=== PATIENT | male | born 1945 | race Caucasian/White ===

== ENCOUNTER 2025-02-07 08:27 | Inpatient (IN) | payer OTHER, MEDICARE ==
[~2025-02-07] VITALS: Ht 365.8 cm; Wt 87.0 kg
--- NOTE | 2025-02-07 09:19 | RADIOLOGY REPORT ---
CLINICAL INFORMATION: 79 years old, Male; HIP PAIN. TECHNIQUE: 2 views of the pelvis and left hip were obtained, including AP view of the pelvis and microsoft bi architect ss-table lateral view of the left hip. COMPARISON: None FINDINGS: Acute fracture of the left femoral neck with associated foreshortening of the femoral neck on the AP view. No other acute fracture visualized. Moderate joint space narrowing in both hips with associated subchondral sclerosis. Focal calcification in the left gluteal soft tissues measuring up t o 1.4 cm. Moderate soft tissue swelling adjacent to the left hip fracture. IMPRESSION: Acute left femoral neck fracture.
[2025-02-07 09:30] LABS: BASOPHILS # (AUTO) 0.1 X10'3 (0-0.2); EOSINOPHILS # (AUTO) 0.1 X10'3 (0-0.9); EOSINOPHILS % (AUTO) 2.2 % (0-6); HEMOGLOBIN 14.8 g/dl (14.0-17.9); LYMPHOCYTES # (AUTO) 1.3 X10'3 (1.1-4.8); LYMPHOCYTES % (AUTO) 22.1 % (21-51); MEAN CORPUSCULAR HEMOGLOBIN 31.9 PG (27.0-31.0); MEAN CORPUSCULAR HGB CONC 34.5 g/dL (33.0-36.5); MEAN CORPUSCULAR VOLUME 92.7 FL (78-98); MEAN PLATELET VOLUME 7.1 FL (7.4-10.4); MONOCYTES # (AUTO) 0.6 X10'3 (0-0.9); MONOCYTES % (AUTO) 10.3 % (2-12); NEUTROPHILS # (AUTO) 3.8 X10'3 (1.8-7.7); NEUTROPHILS % (AUTO) 64.4 % (42-75); PLATELET COUNT 228 X10'3 (140-440); RED BLOOD COUNT 4.64 X10'6 (4.70-6.10); RED CELL DISTRIBUTION WIDTH 13.5 % (11.5-14.5)
[2025-02-07 09:43] LABS: ALANINE AMINOTRANSFERASE 34 U/L (12-78); ALBUMIN 3.7 G/DL (3.4-5.0); ALBUMIN/GLOBULIN RATIO 1.3 (1.1-1.5); ALKALINE PHOSPHATASE 61 IU/L (46-116); ANION GAP 5 (8-16); ASPARTATE AMINO TRANSFERASE 21 U/L (10-37); BILIRUBIN,TOTAL 0.7 MG/DL (0.1-1.0); BLOOD UREA NITROGEN 15 MG/DL (7-18); BUN/CREATININE RATIO 13.9 (10.0-20.0); CALCIUM 8.6 MG/DL (8.5-10.1); CHLORIDE 105 MMOL/L (99-107); CREATININE 1.08 MG/DL (0.60-1.10); GLUCOSE 216 MG/DL (70-104); POTASSIUM 4.3 MMOL/L (3.5-5.1); SODIUM 139 MMOL/L (135-145); TOTAL CARBON DIOXIDE 28.6 MMOL/L (24-32); TOTAL PROTEIN 6.5 G/DL (6.4-8.2); eCRCL 59 ML/MIN; eGFR 66 ML/MIN
--- NOTE | 2025-02-07 09:55 | Physician Documentation ---
History of Present Illness ~ Chief Complaint: Leg Pain Stated Complaint: FALL Time Seen by MD: 08:36 Primary Medical Doctor: CHRISTOPHER HOOD 79 year old male fell while checking into hotel this morning and sustained injury to L leg, BIB EMS with L hip pain. Denies LOC, head strike, is not on blood thinners, denies chest pain, SOB, fevers. Is on trip with significant other. Tetanus witin 5 years: No Medication Reconciliation Allergies: Coded Allergies: triamcinolone (Unverified Allergy, Unknown, 02/07/25) Review of Systems All Other Systems at this time: Reviewed and Negative Physical Exam Vital Signs: RN Vital Signs have been reviewed: Yes, Temperature: 97.0, Source: Temporal, Heart Rate: 68, Respiratory Rate: 18, BP: 206/106, Pulse Oximetry: 98, Weight: 87.000 Oxygen Flow Rate: 0 Physical Exam HEENT: PERRL, moist oral mucosa, EOMI Pulmonary: No respiratory distress MSK: no deformity, LLE shortened and externally rotated, tender to palpation over greater trochanter Skin: w/d/i, no rash Neuro: alert, nonfocal Psych: normal affect Progress Results/Orders Results/Orders Orders - KEATON BECK MD Hip Unilateral 2 Views (02/07/25 08:55) Urinalysis, Cult If Indicated (02/07/25 09:09) * (A) [facility]- Protocol * Q12H@07,19 (02/07/25 09:09) Page Hospitalist (02/07/25 ) Completed Orders - KEATON BECK MD Hip Unilateral 2 Views (02/07/25 08:55) Cbc/Diff (02/07/25 09:09) CMP (02/07/25 09:09) Lidocaine 2% Jelly 11ml Syr (Glydo-Lidoc (02/07/25 09:10) Vital Signs 02/07/25 08:33 Temp 97.0 Pulse 68 Resp 18 B/P (MAP) 206/106 Pulse Ox 98 O2 Flow Rate 0 Laboratory Tests Test 02/07/25 09:17 White Blood Count 6.0 Red Blood Count 4.64 L Hemoglobin 14.8 Hematocrit 43.0 Mean Corpuscular Volume 92.7 Mean Corpuscular Hemoglobin 31.9 H Mean Corpuscular Hemoglobin Concent 34.5 Red Cell Distribution Width 13.5 Platelet Count 228 Mean Platelet Volume 7.1 L Neutrophils (%) (Auto) 64.4 Lymphocytes (%) (Auto) 22.1 Monocytes (%) (Auto) 10.3 Eosinophils (%) (Auto) 2.2 Basophils (%) (Auto) 1.0 Neutrophils # (Auto) 3.8 Lymphocytes # (Auto) 1.3 Monocytes # (Auto) 0.6 Eosinophils # (Auto) 0.1 Basophils # (Auto) 0.1 CBC Comment Sodium Level 139 Potassium Level 4.3 Chloride Level 105 Carbon Dioxide Level 28.6 Anion Gap 5 L Blood Urea Nitrogen 15 Creatinine 1.08 Estimated GFR/1.73 m2 66 BUN/Creatinine Ratio 13.9 Glucose Level 216 H Calcium Level 8.6 Total Bilirubin 0.7 Aspartate Amino Transf (AST/SGOT) 21 Alanine Aminotransferase (ALT/SGPT) 34 Alkaline Phosphatase 61 Total Protein 6.5 Albumin 3.7 Globulin 2.8 Albumin/Globulin Ratio 1.3 Chemistry Comments EKG/XRAY/CT/US/VASC/MRI Bone/Soft Tissue X-Ray (Ext.) : Interpreted By: self Views: 1 VIEW Indication: pain Location: pelvis Additional Comment my interpretation: L femoral neck fracture Medical Decision Making Findings 79 year old male with likely L hip fracture, confirmed on xray. Lab studies interpreted by me were largely unremarkable. Counseled patient, will place hightower and refer to our orthopedic surgeon continuous process tanner rotary drum today. Departure Disposition: ADMITTED INPATIENT Admitted to Inpatient Unit: to hospitalist Admission Level of Care: Med/Surg Impression: Primary Impression: Fracture of femur Condition: Stable Referrals: NO PRIMARY CARE PROVIDER (PCP) Education Educated: Patient, Family Educated regarding: diagnosis, treatment, prognosis, need for follow up Signature Scribe Signature: . Attestation: . KEATON BECK MD Feb 07, 2025 09:55
[2025-02-07] MEDS: fentaNYL/PF 50MCG/1 ML 2ML syringe IV ONE (10:20)
[2025-02-07] MEDS ORDERED: HYDROcodone/acetaminophen 5mg/325mg tablet PO PRN (10:30)
[2025-02-07] MEDS ORDERED: bisacodyl 10mg suppository rectal RC PRN (10:30)
[2025-02-07] MEDS ORDERED: ondansetron/PF 4mg/2ml inj IV PRN (10:30)
[2025-02-07] MEDS ORDERED: magnesium hydroxide 30ml (MOM) UD suspension PO PRN (10:30)
[2025-02-07] MEDS ORDERED: acetaminophen 325mg tablet PO PRN ×2 (10:30)
[2025-02-07] MEDS ORDERED: morphine 2 MG/ML inj. syringe IV PRN ×2 (10:30)
[2025-02-07] MEDS ORDERED: ondansetron 4mg rapidly disintigrating tab PO PRN (10:30)
[2025-02-07] MEDS ORDERED: diphenhydrAMINE 50 mg/ml inj IV PRN (10:30)
[2025-02-07] MEDS ORDERED: mag hydrox/Alum hydrox/simeth 30ml oral suspension PO PRN (10:30)
[2025-02-07] MEDS ORDERED: acetaminophen 650mg rectal suppository RC PRN (10:30)
[2025-02-07] MEDS ORDERED: diphenhydrAMINE 25mg capsule PO PRN (10:30)
[2025-02-07] MEDS ORDERED: dextrose 50%-water 50ml dispensing syringe IV PRN ×2 (10:40)
[2025-02-07] MEDS ORDERED: glucagon, human recombinant 1mg kit SUBCUT PRN (10:40)
[2025-02-07] MEDS ORDERED: DEXTROSE 15 GM of carb/4 tabs (each vial/BOTTLE has 4 tablets) PO PRN ×2 (10:40)
--- NOTE | 2025-02-07 10:50 | HISTORY AND PHYSICAL ---
History & Physical Providers to CC Left hip left thigh pain, fall ground level ~ History of Present Illness Reason for Admit\Complaint: As above History of Present Illness Is a 79 year old male, with history of diabetes mellitus type 2 diet controlled, peripheral neuropathy bilateral lower extremity, venous insufficiency bilateral lower extremity, hypertension uncontrolled, presented today to emergency department chief complaint fall ground level associated with left thigh pain, in addition patient fell while checking into hotel this morning and sustained injury to L leg, BIB EMS with L hip pain. Denies LOC, head strike, is not on blood thinners, denies chest pain, SOB, fevers. Is on trip with significant other. Emergency department he was evaluated by physician was diagnosed with left hip fracture, decision was made to admit patient for further evaluation and treatment Orthopedic doctor consult pending, no additional complaint or concern. Patient is on no home medications. Allergies: Coded Allergies: triamcinolone (Unverified Allergy, Unknown, 02/07/25) Active prescriptions None Home Medications None Past Medical History Past Medical History As in [facility] Past Surgical History Surgical History Comment As in [facility] Past Social History Social History Comment Deny illicit drug abuse tobacco alcohol use live with the family good social support Health Maintenance Health Maintenance Noncontributory ROS ROS Constitutional : no fever , no chills, or weakness. No diaphoresis. Allergic/Immunologic, no lymphadenopathy, no hives, no skin eruptions. Eyes, no recent visual changes, no eye pain, no photophobia. Ears, nose, mouth, throat, no sore throat, no nosebleed, no ear pain. Cardiovascular, no palpitations, skipped beats, chest pain, no peripheral edema, Respiratory, no dyspnea, orthopnea, cough, hemoptysis, chest wall pain. Gastrointestinal, no abdominal pain, nausea, vomiting, constipation or diarrhea. : no dysuria, hematuria, pelvic pain, urethral d/c. Endocrine, no polyuria, polydipsia, recent unintentional weight gain or loss. Hematologic/Lymphatic, no petechiae, no enlarged lymph nodes, no bone pain. Integumentary, no rash, no skin lesions, Musculoskeletal, no muscle aches, or pain, no muscle cramps, positive for fall ground level, associated with left hip pain Neurological, no dizziness, no headache, no syncope, no paresthesia. Psychiatric, no delusions, visual hallucinations, or hearing hallucinations. ROS - in rest is as in HPI. Exam Vitals: Vital Signs Date Time Temp Pulse Resp B/P (MAP) Pulse Ox O2 Delivery O2 Flow Rate FiO2 02/07/25 10:23 68 16 159/128 (138) 96 0 02/07/25 08:33 97.0 Vital signs, stable ,afebrile. High blood pressure noticed, Pulse Oximetry reflects adequate oxygenation. BMI is twenty-six, weight 87 kg General: well developed, well nourished. Awake , alert, and oriented x4, resting comfortably in the bed, in no acute distress . Skin: Warm, dry, no pallor, no rash or petechiae. HEENT: Atraumatic, normocephalic, EOMI, anicteric sclera B; pink conjunctiva; PERRLA, normal oropharynx, moist oral and nasal mucosa. Tympanic membrane , nose , throat clear. Neck: Trachea midline. Supple, full range of motion, no JVD, bruit , hepatojugular reflex , lymphadenopathy or masses, or other lesions Cardiac: Regular rhythm, regular rate no murmurs, rubs, or gallops. Normal S1 and S2, no S3 noticed. PMI is normal. Respiratory: Equal breath sounds bilaterally, no tachypnea; lungs clear to auscultation bilaterally, no wheezing ,rub or rales, or crackles. Chest wall is symmetric and without deformity. No signs of trauma. Chest wall is nontender. No signs of respiratory distress. Resonance is normal upon percussion bilaterally. Gastrointestinal: Abdomen symmetric, non-distended, soft, non-tender, normal bowel sounds x4 quadrant, normoactive, no hepatosplenomegaly , no masses , no bruit, no flank pain bilaterally. No voluntary guarding, rebound, or rigidity. No tenderness to percussion. No pulsatile masses. Equal femoral pulses. No Gonzalez's sign or McBurney point tenderness. Back; no CVA tenderness bilaterally, no deformities. Neck and back are without deformity as well. No tenderness noted on palpation of the spinous processes. Spinous processes are midline. Cervical, thoracic, and lumbar paraspinal muscles are not tender and are without spasm. : normal external genitalia, without lesions, swelling, masses or tenderness. Musculoskeletal: Extremities, normal range of motion, non-tender, muscle strength 5/5 x 4. Negative Homans signs bilaterally on lower extremity. Distal pulses full symmetrical, no clubbing, cyanosis , edema. Locally, left hip, extended rotated shortened, CVA tender to palpation over greater trochanter, neurovascular grossly intact Neurological: Speech is clear, alert, and oriented x 4. No motor or sensory deficit, deep tendon reflexes normal, cerebellar intact. Cranial nerves II-XII intact. Psych: Alert and or appropriate, normal affect. Vascular: Good distal pulses, which are equal x4; capillary refill less than 2 seconds. Lymphatic, no lymphadenopathy. Diagnostic Data Last Recorded Lab Results: 02/07/2517 02/07/25 0917 Additional Plan Assessment Mechanical fall ground level Left hip fracture Hypertensive urgency Diabetes mellitus type 2 diet controlled on no medication at home Bilateral lower extremity peripheral neuropathy Bilateral lower extremity venous insufficiency Plan IV analgesics, for pain control, IV fluids keep patient euvolemic well hydrated Hyperglycemia sliding scale Gould catheter in place Orthopedic doctor consultation pending Control blood pressure I reconciled home medications DVT gastropathy prophylaxis addressed Date of Service: Feb 07, 2025 Billing Provider: SUZANNE DARDEN MD Common Visit Codes: 26850-[id number] INP/OBS CARE (HIGH) Secondary Visit Codes: [id number] CARE PLAN 30 MINUTES SUZANNE DARDEN MD Feb 07, 2025 10:49
--- NOTE | 2025-02-07 10:51 | ELECTROCARDIOGRAPH REPORT ---
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 Roberto Carlin Measurements Intervals [place] Rate: 63 P: 35 [place]: 184 QRS: 19 QRSD: 120 T: 68 QT: 443 QTc: 454 Interpretive Statements Sinus rhythm Nonspecific intraventricular conduction delay Electronically Signed On 02-10-2025 19:04:[address] Roberto Carlin Please click the below link to view image of tracing.
[2025-02-07 10:59] LABS: APTT 24 SECONDS (22-32); INR 1.1 INR; PROTHROMBIN TIME 10.9 SECONDS (9.0-12.0)
[2025-02-07 11:08] LABS: MAGNESIUM 2.1 MG/DL (1.5-2.4); THYROID STIMULATING HORMONE 2.25 ulU/ml (0.34-4.50)
[2025-02-07 11:14] LABS: PHOSPHORUS 1.1 MG/DL (2.3-4.5)
[2025-02-07] MEDS: LidoCAINE 2% Topical Jelly 11mL syringe (UROJET) TOP ONE (11:16)
[2025-02-07] MEDS: normal saline 1000ml 1,000 ML IV SCH (11:16)
[2025-02-07] MEDS: HYDROcodone/acetaminophen 10/325mg tab PO PRN (11:27)
--- NOTE | 2025-02-07 11:29 | RADIOLOGY REPORT ---
CHEST RADIOGRAPH Indication: cp Technique: Single frontal view of the chest was obtained COMPARISON: None FINDINGS: Lines and Tubes: None Lungs: Clear Pleura: No effusion. No pneumothorax. Cardiomediastinal contours: Unremarkable Bones: Unremarkable IMPRESSION: No acute disease.
[2025-02-07] MEDS ORDERED: NO HOME MEDS (11:30)
[2025-02-07 11:55] LABS: BILIRUBIN,URINE NEGATIVE (Neg); CLARITY,URINE CLEAR (Clear); COLOR,URINE YELLOW (Yellow); GLUCOSE, URINE 500 mg/dl (Neg); KETONES,URINE TRACE mg/dl (Neg); LEUKOCYTE ESTERASE ,URINE NEGATIVE (Neg); NITRITES, URINE NEGATIVE (Neg); OCCULT BLOOD,URINE NEGATIVE (Neg); PROTEIN,URINE NEGATIVE (Neg); UROBILINOGEN,URINE 0.2 E.U/dL (0.2-1.0)
[2025-02-07] MEDS: HYDROmorphone inj. 0.5 MG/0.5 ML DISP.SYRIN IV PRN (12:00)
[2025-02-07] MEDS: INSULIN LISPRO 100 UNIT/ML INSULN.PEN MULTI-DOSE SQ SCH (12:00)
[2025-02-07 12:01] LABS: UA COLLECTION TYPE NON-SPECIFIED
[2025-02-07 13:00] VITALS: BP 161/69; PULSE 66; RESP 16; TEMP 97.9; O2SAT 97
[2025-02-07 14:04] VITALS: BP 161/76; PULSE 66; O2SAT 95
[2025-02-07] MEDS: hydrALAZINE 20mg/ml inj. IV PRN (14:06)
[2025-02-07 16:41] VITALS: RESP 16
[2025-02-07] MEDS: Neutra Phos packet PO PRN (16:58)
[2025-02-07 18:00] VITALS: BP 162/75; PULSE 76; RESP 20; TEMP 98.4; O2SAT 95
[2025-02-07] MEDS: docusate sod 100mg capsule PO SCH (19:58)
[2025-02-07 20:00] VITALS: RESP 18; O2SAT 96
[2025-02-07] MEDS ORDERED: temazepam 15mg capsule PO PRN (21:00)
[2025-02-07 22:00] VITALS: BP 167/72; PULSE 79; RESP 18; TEMP 97.9; O2SAT 92
[2025-02-08] VITALS (20 sets, daily range): BP systolic 89–136; BP diastolic 51–72; PULSE 68–90; RESP 14–18; TEMP 97.8–98.6; O2SAT 91–98
[2025-02-08 05:45] LABS: BASOPHILS # (AUTO) 0.1 X10'3 (0-0.2); BASOPHILS % (AUTO) 0.7 % (0-1); EOSINOPHILS # (AUTO) 0.1 X10'3 (0-0.9); EOSINOPHILS % (AUTO) 1.4 % (0-6); HEMATOCRIT 39.5 % (42.0-52.0); HEMOGLOBIN 13.8 g/dl (14.0-17.9); LYMPHOCYTES # (AUTO) 1.3 X10'3 (1.1-4.8); LYMPHOCYTES % (AUTO) 15.8 % (21-51); MEAN CORPUSCULAR HEMOGLOBIN 32.5 PG (27.0-31.0); MEAN CORPUSCULAR VOLUME 92.8 FL (78-98); MEAN PLATELET VOLUME 7.2 FL (7.4-10.4); MONOCYTES # (AUTO) 0.7 X10'3 (0-0.9); MONOCYTES % (AUTO) 8.1 % (2-12); PLATELET COUNT 199 X10'3 (140-440); RED BLOOD COUNT 4.25 X10'6 (4.70-6.10); RED CELL DISTRIBUTION WIDTH 13.1 % (11.5-14.5); WHITE BLOOD COUNT 8.1 X10'3 (4.5-11.0)
[2025-02-08 05:58] LABS: ALANINE AMINOTRANSFERASE 146 U/L (12-78); ALBUMIN 3.1 G/DL (3.4-5.0); ALBUMIN/GLOBULIN RATIO 1.1 (1.1-1.5); ALKALINE PHOSPHATASE 62 IU/L (46-116); ANION GAP 5 (8-16); ASPARTATE AMINO TRANSFERASE 128 U/L (10-37); BILIRUBIN,TOTAL 1.3 MG/DL (0.1-1.0); BLOOD UREA NITROGEN 9 MG/DL (7-18); BUN/CREATININE RATIO 10.6 (10.0-20.0); CALCIUM 8.1 MG/DL (8.5-10.1); CHLORIDE 103 MMOL/L (99-107); CHOL/HDL RATIO 2.9 (0.00-4.99); CHOLESTEROL 160 MG/DL (0-200); CREATININE 0.85 MG/DL (0.60-1.10); GLUCOSE 153 MG/DL (70-104); HDL CHOLESTEROL 56 MG/DL (35-60); LDL CHOLESTEROL 91 MG/DL (50-100); POTASSIUM 3.8 MMOL/L (3.5-5.1); SODIUM 136 MMOL/L (135-145); TOTAL CARBON DIOXIDE 27.9 MMOL/L (24-32); TOTAL PROTEIN 5.8 G/DL (6.4-8.2); TRIGLYCERIDES 51 MG/DL (20-135); eCRCL 84 ML/MIN; eGFR 87 ML/MIN
[2025-02-08] MEDS: pantoprazole 40mg Tablet.DR PO SCH (07:30)
[2025-02-08] MEDS ORDERED: vancomycin 1,000mg inj ONE (08:22)
[2025-02-08] MEDS ORDERED: BUPIVAcaine 2.5mg/ml inj 50ml vial (contains preservative) ONE ×2 (08:22→08:45)
[2025-02-08] MEDS ORDERED: cloNIDine hcl/PF 100mcg/ml inj ONE (09:11)
[2025-02-08] MEDS ORDERED: sevoflurane 250ml liquid IH ONE (09:12)
[2025-02-08] MEDS ORDERED: midazolam 1 mg/ML 2ml injection ONE (09:15)
--- NOTE | 2025-02-08 09:21 | CONSULTATION REPORT ---
History of Present Illness Providers to CC ~ Reason for Admit\Admit Dx: Left hip fracture Refering MD: Bernadine Segal MD History of Present Illness The patient is an 79-year-old man who is traveling through here with family. He was from [facility]. He was moving some luggage and suffered a mechanical fall injuring his left hip. He was unable to ambulate and once in the ER x-rays showed a subcapital left femoral neck fracture. Consultation is obtained for treatment of left hip fracture. He reports no prior problems with the hip such as arthritis pain stiffness or previous surgery. He reports he is generally in good health. He reports he does have some neuropathy in his lower extremities which he believes is the reason he fell. Allergies: Coded Allergies: triamcinolone (Unverified Allergy, Unknown, 02/07/25) Home Medications Home Medications Active Reported No Home Medications (Home Med List) Each Physical Exam Last Vital Signs Recorded: Temperature: 97.9, Source: Oral, Heart Rate: 77, Respiratory Rate: 16, BP: 136/72, Pulse Oximetry: 91, Weight: 87.000 General Appearance: alert, no apparent distress EENT: PERRL/EOMI Neck: normal inspection Respiratory: lungs clear Chest: no accessory muscle use Cardiovascular: normal peripheral pulses Extremities The leg is in good position without shortening or rotation. He has tenderness at the groin and lateral hip area. The skin is intact. There was no swelling to the distal thigh knee leg or ankle area. He was moving his toes well and distal pulses are intact. Results Results/Orders Results/Orders Left hip imaging shows a subcapital left femoral neck fracture with preservation of the articular surface of the hip joint. No other bony lesions are present Diagram Lab Result Diagram: 02/08/25 0502 02/08/25 0502 Assessment/Plan Problems/Diagnosis: (1) Femoral neck fracture Additional Plan Hemiarthroplasty is the appropriate treatment for this type of procedure. I explained this to the patient and the the recommendation for surgery to restore ambulation. We also discussed the risks and benefits of the type of surgery. Some of the risks include but are not limited to infection, bleeding, nerve or vessel damage, dislocation, and a persistent hip pain. He understands and agrees to proceed. Problem Qualifiers (1) Femoral neck fracture: Qualified Codes: S72.002A - Fracture of unspecified part of neck of left femur, initial encounter for closed fracture MANISHA OROPEZA Jr., MD Feb 08, 2025 09:21
[2025-02-08] MEDS ORDERED: morphine 4 MG/ML inj SYRINge IV PRN (09:45)
[2025-02-08] MEDS ORDERED: labetalol 20mg/4ml (5mg/ml) syringe IV PRN (09:45)
[2025-02-08] MEDS ORDERED: meperidine/PF 100mg/ml syringe IV PRN (09:45)
[2025-02-08] MEDS ORDERED: ringers solution, lacted 1,000 ML IV SCH (09:45)
[2025-02-08] MEDS ORDERED: HYDROmorphone/PF 0.2 MG/ML SYRINGE IV PRN ×2 (09:45)
[2025-02-08] MEDS ORDERED: hydrALAZINE 20mg/ml inj. IV PRN (09:45)
[2025-02-08] MEDS ORDERED: ondansetron/PF 4mg/2ml inj IV PRN (09:45)
[2025-02-08] MEDS ORDERED: proCHLORperazine 10 MG/2 ml inj IV PRN (09:45)
[2025-02-08] MEDS ORDERED: morphine 2 MG/ML inj. syringe IV PRN (09:45)
[2025-02-08] MEDS: BUPIVAcaine/PF 2.5 mg/ml (0.25%) 30ml vial IJ ONE (10:17)
[2025-02-08] MEDS ORDERED: propofol inj 20 ML IV ONE (10:20)
[2025-02-08] MEDS ORDERED: fentaNYL /PF 50mcg/ml 5ml ampule ONE (10:20)
[2025-02-08] MEDS ORDERED: dexamethasone sod phosphate 4mg/ml inj. ONE (10:21)
[2025-02-08] MEDS ORDERED: ceFAZolin 1000mg inj ONE ×2 (10:21)
[2025-02-08] MEDS ORDERED: ondansetron/PF 4mg/2ml inj ONE (10:21)
[2025-02-08] MEDS ORDERED: LIDOcaine 2% (20mg/ml) 5ml vial ONE (10:21)
[2025-02-08] MEDS ORDERED: ROPIVAcaine 0.5% (5mg/ml) 30ml vial ONE (10:21)
[2025-02-08] MEDS ORDERED: ePHEDrine 50MG/ML INJ. ONE (10:28)
--- NOTE | 2025-02-08 10:57 | OPERATIVE REPORT ---
Operative Report Providers to ~ Date of Procedure: Feb 08, 2025 Pre-Operative Diagnosis: Left hip femoral neck fracture Post-Operative Diagnosis Left hip subcapital femoral neck fracture Procedure Performed Left hip cemented bipolar hemiarthroplasty Surgeon: Scout Pavon MD Rehab Liaison None Anesthesiologist: Estefani Cortes Type of Anesthesia: General (With femoral nerve block), Spinal Findings: See below Complications None Prosthetics\Implants used: Biomet hip system echo FX standard femoral stem size seven with standard neck and 54 mm head, bipolar, cemented Estimated Blood Loss: Less than 50 mL Specimen Removed: Femoral head not sent to pathology Description of Procedure: The patient is an 79-year-old man who was visiting from [facility]. He was moving some luggage and suffered a mechanical fall injuring his left hip. X-rays showed a displaced subcapital femoral neck fracture with preservation of the articular surface. Surgery is indicated to restore ambulation. I discussed with the patient the nature of the injury and need for surgery. We also discussed the risks benefits potential complications of the surgery which include but are not limited to infection, bleeding, nerve or vessel damage, dislocation, and persistent hip pain. He understands and agrees to proceed. Anesthetic and antibiotics were given in the operating room. The patient was then placed in the right lateral decubitus position with the bony areas well padded. The hip and leg were prepped and draped in usual manner. A standard posterolateral approach was made to the hip. A T-incision was made in the capsule to access the femoral head. The neck cut was made and the femoral head was removed using the corkscrew. Broaching was done to size nine and it was fairly tight so we decided on a size seven implant. Broaching was done properly. Thorough irrigation was done with the preparation of the canal with a cement restrictor. The stem was then cemented in place and held until curing. The head was then placed on the Durant taper and the hip was reduced. It was g ood motion with a stable positioning. Thorough irrigation was done again the capsule was then repaired using 0. Vicryl and the incision was then closed in layers with the use of vancomycin powder in the deeper tissues. The skin was closed with a 2-0 Stratafix and Dermabond. Marcaine was injected at the incision site and a dressing was applied followed by a hip wrap. A knee immo bilizer was placed to restrict inappropriate positioning. The patient was then awakened and taken to the recovery room in stable condition. He tolerated the procedure well. Counts repoted as correct: Yes SCOUT PAVON Jr., MD Feb 08, 2025 10:57
[2025-02-08] MEDS: acetaminophen 1,000mg/100ml IV 100 ML IV PRN (11:11)
--- NOTE | 2025-02-08 14:06 | RADIOLOGY REPORT ---
CLINICAL INDICATION: LEFT HIP ABRAHAN TECHNIQUE: 3 views left DI HIP UNILATERAL 2 VIEWS Comparison: DI HIP UNILATERAL 2 VIEWS on DOS: 02/07/25 FINDINGS/IMPRESSION: : There is no evidence of acute fracture or dislocation. Soft tissues are unremarkable. Left hip prosthesis is intact
[2025-02-08] MEDS ORDERED: sodium phosphate inj. 15 MMOL in dextrose 5%-water 250 ML IV PRN (14:35)
[2025-02-08] MEDS ORDERED: sodium phosphate inj. 30 MMOL in dextrose 5%-water 250 ML IV PRN (14:35)
[2025-02-08] MEDS ORDERED: Neutra Phos packet PO PRN (14:35)
[2025-02-08] MEDS: ringers solution, lacted 1,000 ML IV ONE (14:36)
--- NOTE | 2025-02-08 18:00 | PROGRESS NOTE ---
Daily Progress Note Providers to CC No new complaint today, ready to go to OR ~ Central Line/PICC still needed: No Gould-Non Protocol Gould Indications Met/Not Met: F/C Indications Not Met Antibiotic Timeout Antibiotic Ordered?: No MRSA Education MRSA Education Provided to pt: No Subjective As above Objective Vital Signs Date Time Temp Pulse Resp B/P (MAP) Pulse Ox O2 Delivery O2 Flow Rate FiO2 02/08/25 17:00 70 112/64 (80) 02/08/25 14:58 98.6 16 95 Nasal Cannula 2.0 Vital signs, stable ,afebrile. Pulse Oximetry reflects adequate oxygenation. General: well developed, well nourished. Awake , alert, and oriented x4, resting comfortably in the bed, in no acute distress . Skin: Warm, dry, no pallor, no rash or petechiae. HEENT: Atraumatic, normocephalic, EOMI, anicteric sclera B; pink conjunctiva; PERRLA, normal oropharynx, moist oral and nasal mucosa. Tympanic membrane , nose , throat clear. Neck: Trachea midline. Supple, full range of motion, no JVD, bruit , hepatojugular reflex , lymphadenopathy or masses, or other lesions Cardiac: Regular rhythm, regular rate no murmurs, rubs, or gallops. Normal S1 and S2, no S3 noticed. PMI is normal. Respiratory: Equal breath sounds bilaterally, no tachypnea; lungs clear to auscultation bilaterally, no wheezing ,rub or rales, or crackles. Chest wall is symmetric and without deformity. No signs of trauma. Chest wall is nontender. No signs of respiratory distress. Resonance is normal upon percussion bilaterally. Gastrointestinal: Abdomen symmetric, non-distended, soft, non-tender, normal bowel sounds x4 quadrant, normoactive, no hepatosplenomegaly , no masses , no bruit, no flank pain bilaterally. No voluntary guarding, rebound, or rigidity. No tenderness to percussion. No pulsatile masses. Equal femoral pulses. No Gonzalez's sign or McBurney point tenderness. Back; no CVA tenderness bilaterally, no deformities. Neck and back are without deformity as well. No tenderness noted on palpation of the spinous processes. Spinous processes are midline. Cervical, thoracic, and lumbar paraspinal muscles are not tender and are without spasm. : normal external genitalia, without lesions, swelling, masses or tenderness. Musculoskeletal: Extremities, normal range of motion, non-tender, muscle strength 5/5 x 4. Negative Homans signs bilaterally on lower extremity. Distal pulses full symmetrical, no clubbing, cyanosis , edema. Locally, left lower extremity externally rotated shortened tender to palpation over left hip Neurological: Speech is clear, alert, and oriented x 4. No motor or sensory deficit, deep tendon reflexes normal, cerebellar intact. Cranial nerves II-XII intact. Psych: Alert and or appropriate, normal affect. Vascular: Good distal pulses, which are equal x4; capillary refill less than 2 seconds. Lymphatic, no lymphadenopathy. Result Diagram: 02/08/25 0502 02/08/25 0502 Coagulation Studies Laboratory Tests Test 02/07/25 09:17 Prothrombin Time 10.9 SECONDS (9.0-12.0) INR International Normalized Ratio 1.1 INR Activated Partial Thromboplast Time 24 SECONDS (22-32) Coagulation Comments Problem\Assessment\Plan Assessment Mechanical fall ground level Left hip fracture Hypertensive urgency Diabetes mellitus type 2 diet controlled on no medication at home Bilateral lower extremity peripheral neuropathy Bilateral lower extremity venous insufficiency Plan IV analgesics, for pain control, IV fluids keep patient euvolemic well hydrated Hyperglycemia sliding scale Gould catheter in place We will go to OR today Control blood pressure I reconciled home medications DVT gastropathy prophylaxis addressed Sepsis Screening Reassessment Date: Feb 08, 2025 Date of Service: Feb 08, 2025 Billing Provider: SUZANNE DARDEN MD Common Visit Codes: [id number] INP/OBS CARE(HIGH) SUZANNE DARDEN MD Feb 08, 2025 18:00
[2025-02-09] VITALS (7 sets, daily range): BP systolic 114–142; BP diastolic 58–72; PULSE 71–76; RESP 16–18; TEMP 97.9–98.2; O2SAT 93–97
[2025-02-09 06:00] LABS: BASOPHILS % (AUTO) 0.1 % (0-1); EOSINOPHILS % (AUTO) 0.1 % (0-6); HEMOGLOBIN 10.1 g/dl (14.0-17.9); LYMPHOCYTES % (AUTO) 10.9 % (21-51); MEAN CORPUSCULAR HEMOGLOBIN 32.2 PG (27.0-31.0); MEAN CORPUSCULAR HGB CONC 34.6 g/dL (33.0-36.5); MEAN CORPUSCULAR VOLUME 92.9 FL (78-98); MEAN PLATELET VOLUME 7.7 FL (7.4-10.4); MONOCYTES # (AUTO) 0.9 X10'3 (0-0.9); MONOCYTES % (AUTO) 10.8 % (2-12); NEUTROPHILS # (AUTO) 6.9 X10'3 (1.8-7.7); NEUTROPHILS % (AUTO) 78.1 % (42-75); PLATELET COUNT 180 X10'3 (140-440); RED BLOOD COUNT 3.12 X10'6 (4.70-6.10); RED CELL DISTRIBUTION WIDTH 13.3 % (11.5-14.5); WHITE BLOOD COUNT 8.8 X10'3 (4.5-11.0)
[2025-02-09 06:52] LABS: ANION GAP 6 (8-16); BLOOD UREA NITROGEN 15 MG/DL (7-18); BUN/CREATININE RATIO 18.1 (10.0-20.0); CALCIUM 7.9 MG/DL (8.5-10.1); CHLORIDE 108 MMOL/L (99-107); CREATININE 0.83 MG/DL (0.60-1.10); GLUCOSE 207 MG/DL (70-104); POTASSIUM 4.6 MMOL/L (3.5-5.1); SODIUM 139 MMOL/L (135-145); TOTAL CARBON DIOXIDE 24.7 MMOL/L (24-32); eCRCL 86 ML/MIN; eGFR 89 ML/MIN
[2025-02-09 06:53] LABS: ALANINE AMINOTRANSFERASE 95 U/L (12-78); ALBUMIN 2.4 G/DL (3.4-5.0); ALBUMIN/GLOBULIN RATIO 0.9 (1.1-1.5); ALKALINE PHOSPHATASE 54 IU/L (46-116); ASPARTATE AMINO TRANSFERASE 51 U/L (10-37); BILIRUBIN,TOTAL 0.5 MG/DL (0.1-1.0)
[2025-02-09] MEDS: aspirin 81mg tab.chew PO SCH (07:54)
--- NOTE | 2025-02-09 13:06 | PROGRESS NOTE ---
Daily Progress Note Providers to CC ~ chief complaint, doing well after surgery, no stool last five days Central Line/PICC still needed: No Gould-Non Protocol Gould Indications Met/Not Met: F/C Indications Not Met Antibiotic Timeout Antibiotic Ordered?: Yes MRSA Education MRSA Education Provided to pt: Yes Subjective As above Objective Vital Signs Date Time Temp Pulse Resp B/P (MAP) Pulse Ox O2 Delivery O2 Flow Rate FiO2 02/09/25 07:30 18 97 Nasal Cannula 2.0 02/09/25 07:27 120/60 (80) 02/09/25 06:00 70 02/09/25 05:00 98.1 Vital signs, stable ,afebrile. Pulse Oximetry reflects adequate oxygenation on 2 L oxygen nasal cannula General: well developed, well nourished. Awake , alert, and oriented x4, resting comfortably in the bed, in no acute distress . Skin: Warm, dry, no pallor, no rash or petechiae. HEENT: Atraumatic, normocephalic, EOMI, anicteric sclera B; pink conjunctiva; PERRLA, normal oropharynx, moist oral and nasal mucosa. Tympanic membrane , nose , throat clear. Neck: Trachea midline. Supple, full range of motion, no JVD, bruit , hepatojugular reflex , lymphadenopathy or masses, or other lesions Cardiac: Regular rhythm, regular rate no murmurs, rubs, or gallops. Normal S1 and S2, no S3 noticed. PMI is normal. Respiratory: Equal breath sounds bilaterally, no tachypnea; lungs clear to auscultation bilaterally, no wheezing ,rub or rales, or crackles. Chest wall is symmetric and without deformity. No signs of trauma. Chest wall is nontender. No signs of respiratory distress. Resonance is normal upon percussion bilaterally. Gastrointestinal: Abdomen symmetric, non-distended, soft, non-tender, normal bowel sounds x4 quadrant, normoactive, no hepatosplenomegaly , no masses , no bruit, no flank pain bilaterally. No voluntary guarding, rebound, or rigidity. No tenderness to percussion. No pulsatile masses. Equal femoral pulses. No Gonzalez's sign or McBurney point tenderness. Back; no CVA tenderness bilaterally, no deformities. Neck and back are without deformity as well. No tenderness noted on palpation of the spinous processes. Spinous processes are midline. Cervical, thoracic, and lumbar paraspinal muscles are not tender and are without spasm. : normal external genitalia, without lesions, swelling, masses or tenderness. Musculoskeletal: Extremities, normal range of motion, non-tender, muscle strength 5/5 x 4. Negative Homans signs bilaterally on lower extremity. Distal pulses full symmetrical, no clubbing, cyanosis , edema. Left hip dressing clean dry intact Neurological: Speech is clear, alert, and oriented x 4. No motor or sensory deficit, deep tendon reflexes normal, cerebellar intact. Cranial nerves II-XII intact. Psych: Alert and or appropriate, normal affect. Vascular: Good distal pulses, which are equal x4; capillary refill less than 2 seconds. Lymphatic, no lymphadenopathy. Result Diagram: 02/09/2552302/09/25523 Coagulation Studies Laboratory Tests Test 02/07/25 09:17 Prothrombin Time 10.9 SECONDS (9.0-12.0) INR International Normalized Ratio 1.1 INR Activated Partial Thromboplast Time 24 SECONDS (22-32) Coagulation Comments Problem\Assessment\Plan Assessment Mechanical fall ground level Left hip fracture Hypertensive urgency Diabetes mellitus type 2 diet controlled on no medication at home Bilateral lower extremity peripheral neuropathy Bilateral lower extremity venous insufficiency Hypophosphatemia Plan IV analgesics, for pain control, IV fluids keep patient euvolemic well hydrated Hyperglycemia sliding scale Gould catheter in place, we will consider to remove it today, if okay with the surgeon Correct electrolyte Status post left hip arthroplasty, by orthopedic doctor, postoperative day 1. Good recovery Constipation, laxative on board Control blood pressure I reconciled home medications DVT gastropathy prophylaxis addressed Sepsis Screening Reassessment Date: Feb 09, 2025 Date of Service: Feb 09, 2025 Billing Provider: SUZANNE DARDEN MD Common Visit Codes: [id number] INP/OBS CARE(HIGH) SUZANNE DARDEN MD Feb 09, 2025 13:06
[2025-02-09] MEDS ORDERED: mineral oil 133ml enema RC PRN (13:10)
[2025-02-09] MEDS: magnesium citrate 296ml oral solution PO ONE (13:53)
[2025-02-09] MEDS: lactulose 20gm/30ml cup PO SCH (14:00)
[2025-02-09] MEDS: polyethylene glycol 3350 17gm powd pack PO SCH (20:08)
[2025-02-10 06:00] VITALS: BP 148/73; PULSE 77; RESP 20; TEMP 98.8; O2SAT 94
[2025-02-10 07:01] LABS: BASOPHILS # (AUTO) 0.1 X10'3 (0-0.2); BASOPHILS % (AUTO) 0.7 % (0-1); EOSINOPHILS # (AUTO) 0.5 X10'3 (0-0.9); EOSINOPHILS % (AUTO) 6.2 % (0-6); HEMATOCRIT 28.7 % (42.0-52.0); HEMOGLOBIN 9.8 g/dl (14.0-17.9); LYMPHOCYTES % (AUTO) 25.9 % (21-51); MEAN CORPUSCULAR HEMOGLOBIN 31.9 PG (27.0-31.0); MEAN CORPUSCULAR HGB CONC 34.1 g/dL (33.0-36.5); MEAN CORPUSCULAR VOLUME 93.5 FL (78-98); MEAN PLATELET VOLUME 7.7 FL (7.4-10.4); MONOCYTES # (AUTO) 0.9 X10'3 (0-0.9); MONOCYTES % (AUTO) 11.4 % (2-12); NEUTROPHILS # (AUTO) 4.3 X10'3 (1.8-7.7); NEUTROPHILS % (AUTO) 55.8 % (42-75); PLATELET COUNT 188 X10'3 (140-440); RED BLOOD COUNT 3.07 X10'6 (4.70-6.10); RED CELL DISTRIBUTION WIDTH 13.7 % (11.5-14.5); WHITE BLOOD COUNT 7.8 X10'3 (4.5-11.0)
[2025-02-10 07:28] LABS: ALANINE AMINOTRANSFERASE 67 U/L (12-78); ALBUMIN 2.7 G/DL (3.4-5.0); ALBUMIN/GLOBULIN RATIO 1.1 (1.1-1.5); ALKALINE PHOSPHATASE 47 IU/L (46-116); ANION GAP 9 (8-16); ASPARTATE AMINO TRANSFERASE 37 U/L (10-37); BILIRUBIN,TOTAL 0.6 MG/DL (0.1-1.0); BLOOD UREA NITROGEN 13 MG/DL (7-18); BUN/CREATININE RATIO 16.5 (10.0-20.0); CALCIUM 8.1 MG/DL (8.5-10.1); CHLORIDE 109 MMOL/L (99-107); CREATININE 0.79 MG/DL (0.60-1.10); GLUCOSE 135 MG/DL (70-104); POTASSIUM 3.9 MMOL/L (3.5-5.1); SODIUM 145 MMOL/L (135-145); TOTAL CARBON DIOXIDE 27.5 MMOL/L (24-32); TOTAL PROTEIN 5.2 G/DL (6.4-8.2); eCRCL 90 ML/MIN; eGFR > 90 ML/MIN
[2025-02-10 10:00] VITALS: BP 125/61; PULSE 79; RESP 12; TEMP 98.1; O2SAT 95
[2025-02-10] MEDS ORDERED: ACET-1008 PO (13:06)
[2025-02-10] MEDS ORDERED: polyethylene glycol 3350 pkt PO (13:07)
[2025-02-10] MEDS ORDERED: HYDR-3964 PO (13:07)
--- NOTE | 2025-02-10 13:53 | PROGRESS NOTE ---
Progress Note Ortho Ortho Post Op Day #: 2 ROS ROS No new complaints Exam Exam: Alert and Oreinted x4, Wound clean and dry, Distal neurovasc intact Problem/Assessment/Plan Assessment\Plan: Cont. Physicial Therapy Problems/Diagnosis: (1) Femoral neck fracture Additional Plan Upon discharge the patient is planning to return home to [facility] where he will obtain orthopedic postoperative follow up care. Results/Orders Result Diagram: 02/10/25 0616 02/10/25 0616 EKG/XRAY/CT/US/VASC/MRI Bone/Soft Tissue X-Ray (Ext.) : Location: pelvis Problem Qualifiers (1) Femoral neck fracture: Qualified Codes: S72.002A - Fracture of unspecified part of neck of left femur, initial encounter for closed fracture MANISHA OROPEZA Jr., MD Feb 10, 2025 13:53
--- NOTE | 2025-02-10 17:15 | DISCHARGE SUMMARY ---
Discharge Summary Providers to CC ~ Discharge Summary Admission Diagnosis: Left hip femoral neck fracture Hospital Course DATE OF ADMISSION: February 07, 2025 DATE OF DISCHARGE: February 10, 2025 CBC testing done on February 10, 2025 WBC 7.8 hemoglobin 9.8 hematocrit 28.7. Serum chemistry done on February 10, 2025 sodium 145 potassium 3.9, serum creatinine 0.79 GFR greater than 90, hemoglobin A1c 7.0. Normal liver enzymes. Normal lipid panel. HIP UNILATERAL 2 VIEWSFINDINGS/IMPRESSION: : There is no evidence of acute fracture or dislocation. Soft tissues are unremarkable. Left hip prosthesis is intact CHEST,SINGLE VIEW- IMPRESSION: No acute disease. HIP UNILATERAL 2 VIEWS IMPRESSION: Acute left femoral neck fracture. Discharge Diagnosis\\Comment: Left hip femoral neck fracture Operations\\Procedures: Left hip cemented bipolar hemiarthroplasty Consultants: Dr Scout Pavon MD Complications: None Condition on DC: Stable New Medications: Hydrocodone Bit/Acetaminophen (Hydrocodon-Acetaminophen 5-325) 5 Mg-325 Mg Tablet 1 TAB PO Q8H PRN for moderate or severe pain 4-10 for 7 Days, #20 TAB [polyethylene glycol 3350 pkt] () 17 GM POWD.PACK 17 GM PO HS PRN for constipation for 10 Days, #10 Changed Medications: Acetaminophen (Tylenol) 325 Mg Tablet 1 TAB PO Q8H PRN for mild pain 1-3 for 10 Days, #30 TAB (Changed from: QDAY PRN; 30) Discontinued Medications: Home Med List (No Home Medications) Each Discharge Summary: As per admitting provider's history and physical note" this a 79 year old male, with history of diabetes mellitus type 2 diet controlled, peripheral neuropathy bilateral lower extremity, venous insufficiency bilateral lower extremity, hypertension uncontrolled, presented today to emergency department chief complaint fall ground level associated with left thigh pain, in addition patient fell while checking into hotel this morning and sustained injury to L leg, BIB EMS with L hip pain. Denies LOC, head strike, is not on blood thinners, denies chest pain, SOB, fevers. Is on trip with significant other. Emergency department he was evaluated by physician was diagnosed with left hip fracture, decision was made to admit patient for further evaluation and treatment Orthopedic doctor consult pending, no additional complaint or concern. Patient is on no home medications." During hospitalization patient was treated for mechanical ground level fall, left hip fracture treated with IV analgesic pain medication.Dr Scout Pavon evaluated the patient for left hip femoral neck fracture and he did Left hip cemented bipolar hemiarthroplasty. As per Dr. Pavon Upon discharge the patient is planning to return home to [facility] where he will obtain orthopedic postoperative follow up care. Patient also had hypertensive urgency which resolved with antihypertensive medication. Other comorbidities treated during hospitalization type 2 diabetes hemoglobin a 7.0 , placed on hypoglycemia/Hyperglycemia sliding scale. Patient does have Bilateral lower extremity peripheral neuropathy and Bilateral lower extremity venous insufficiency. Patient's clinical condition improved during hospitalization and he wants to go home after discharge. Physical therapy team cleared the PT for discharge. Patient is seen and examined before the discharge and discharge instructions provided to the patient. Patient was sent on pain medication at home.please follow up with PCP , nurse orthopedic in 1 week . provide fall precaution documents . please monitor blood pressure and heart rate daily for 2-3 weeks and show document to PCP . All questions and concerns answered to the best of my professional medical knowledge. General-patient not in any acute distress, alert awake oriented, chronically ill-appearing, age-appropriate HEENT-atraumatic normocephalic, neck supple without elevated JVD, no thyromegaly or carotid bruit. No lymphadenopathy bilaterally. Eyes-no icterus or pallor seen in eyes Chest-clear to auscultation bilaterally, breathing nonlabored no tachypnea, no wheezing, no crepitation, no crackles. Heart-S1-S2 normal, regular heart rate no murmur Abdomen bowel sounds positive on auscultation, soft nondistended nontender no guarding, no rigidity Skin no active skin rash Neurology-grossly intact, nonfocal alert awake oriented Extremity- no pedal edema , able to wiggle his toes, Left hip dressing clean dry intact Psychiatry - patient is not confused or agitated cooperated during physical examination *Problems/Diagnosis: (1) Femoral neck fracture Total Time Spent on D/C: > 30 Minutes Date of Service: Feb 10, 2025 Billing Provider: MARSHA CUELLAR MD Common Visit Codes: 49238-ISK/OBS DISCH DAY >30min Problem Qualifiers (1) Femoral neck fracture: Qualified Codes: S72.002A - Fracture of unspecified part of neck of left femur, initial encounter for closed fracture MARSHA CUELLAR MD Feb 10, 2025 17:15
== END 2025-02-10 14:15 | disposition home or self-care (01) | DRG 522 ==
LOC: ER 08:32 → ED HOLD 10:38 → ORTHO 4S 12:20
PROVIDERS: ADMIT Family Medicine; ATTEND Family Medicine
PROC: 3E0T3BZ Introduction of Anesthetic Agent into Peripheral Nerves and Plexi, Percutaneous Approach (ICD-10-PCS; 2025-02-08)
PROC: 3E0T33Z Introduction of Anti-inflammatory into Peripheral Nerves and Plexi, Percutaneous Approach (ICD-10-PCS; 2025-02-08)
PROC: 0SRS0J9 Replacement of Left Hip Joint, Femoral Surface with Synthetic Substitute, Cemented, Open Approach (ICD-10-PCS; principal; 2025-02-08 09:12)
DX: S72.012A Unspecified intracapsular fracture of left femur, initial encounter for closed fracture (principal); I16.0 Hypertensive urgency; E83.39 Other disorders of phosphorus metabolism; I10 Essential (primary) hypertension; I87.2 Venous insufficiency (chronic) (peripheral); E11.42 Type 2 diabetes mellitus with diabetic polyneuropathy; W18.39XA Other fall on same level, initial encounter; Y93.89 Activity, other specified; Z88.8 Allergy status to other drugs, medicaments and biological substances; Y92.89 Other specified places as the place of occurrence of the external cause; Y99.8 Other external cause status
CPT/HCPCS: 36415; 71045; 73502; 80053; 80061; 81003; 82948; 83036; 83735; 83880; 84100; 84443; 85025; 85610; 85730; 87081; 93005; 96374; 96375; 97110; 97116; 97161; 97530; 99285; A4314; A4615; A4618; A6454; A7000; C1776; G0378; J0131; J0360; J0690; J0735; J1100; J1171; J1815; J2003; J2250; J2405; J2704; J2795; J3010; J3370; J3490; J7030; J7120